=== PATIENT | female | born 1960 | race Caucasian/White ===

== ENCOUNTER → 2020-08-07 | Outpatient (CLI) | payer OTHER, SELFPAY ==
[~2020-08-07] MED LIST: ASPI-556 PO; CHOL500051 PO; GABA300S PO; LISI1TAB32 PO; PANT20TA18 PO
== END | disposition home or self-care (01) ==
LOC: RAH 09:05
PROVIDERS: ATTEND Family Medicine
DX: G93.5 Compression of brain (principal)
CPT/HCPCS: 70551

== ENCOUNTER → 2023-03-03 | Outpatient (CLI) | payer SELFPAY ==
[~2023-03-03] MED LIST changes: -GABA300S PO; +GABA300S3 PO; -LISI1TAB32 PO; +LISI1TAB49 PO
== END | disposition home or self-care (01) ==
LOC: RAH 08:07
PROVIDERS: ATTEND Internal Medicine Cardiovascular Disease
DX: Z13.6 Encounter for screening for cardiovascular disorders (principal)
CPT/HCPCS: 75571